=== PATIENT | female | born 1990 | race African-American/Black ===

== ENCOUNTER 2025-01-29 02:41 | Emergency (ER) | payer OTHER ==
[~2025-01-29] VITALS: Ht 177.8 cm; Wt 65.0 kg
[2025-01-29 02:42] VITALS: BP 122/84; PULSE 76; RESP 20; TEMP 98.6; O2SAT 100
[2025-01-29] MEDS: PERTUSS(ACELL),DIPH,TET/PF 0.5 ML SYRINGE [ADULT] IM. ONE (03:30)
[2025-01-29] MEDS: SILVER SULFADIAZINE 1% 25 GM CREAM TUBE TP ONE (03:30)
== END 2025-01-29 05:13 | disposition home or self-care (01) ==
LOC: EMS 02:42
DX: S61.012A Laceration without foreign body of left thumb without damage to nail, initial encounter (principal); W26.0XXA Contact with knife, initial encounter; Y93.89 Activity, other specified; Y92.89 Other specified places as the place of occurrence of the external cause; Y99.8 Other external cause status
CPT/HCPCS: 12001; 90471; 90715; 99283